=== PATIENT | male | born 1960 | race Caucasian/White ===

== ENCOUNTER → 2017-07-23 | Outpatient (CLI) | payer BC ==
[2017-07-23 08:49] LABS: Basophils % (A) 0 %; Eosinophils # (A) 0.2 k/uL (0-0.7); Eosinophils % (A) 3 %; HCT 46.5 % (39.0-53.0); HGB 15.5 gm/dL (13.0-17.5); Lymphocytes # (A) 1.9 k/uL (1.0-4.8); Lymphocytes % (A) 24 %; MCH 30.2 pg (25.0-35.0); MCHC 33.3 g/dL (31.0-37.0); MCV 90.6 fL (80.0-100.0); Mean Platelet Volume 7.5; Monocytes # (A) 0.6 k/uL (0-1.0); Monocytes % (A) 8 %; Neutrophils # (A) 5.1 k/uL (1.3-7.7); Neutrophils % (A) 63 %; Platelet Count 225 k/uL (150-450); RBC 5.13 m/uL (4.30-5.90); RDW 12.1 % (11.5-15.5); WBC 8.1 k/uL (3.8-10.6)
[2017-07-23 09:01] LABS: Albumin 4.2 g/dL (3.5-5.0); Calcium 9.4 mg/dL (8.4-10.2); Potassium 5.3 mmol/L (3.5-5.1); Total Bilirubin 0.5 mg/dL (0.2-1.3); Total Protein 7.3 g/dL (6.3-8.2)
[2017-07-23 16:44] LABS: Vitamin D 25 Hydroxy 19.6 ng/mL (30.0-100.0)
[2017-07-23 18:13] LABS: Hepatitis C IgG Antibody Non-Reactive (Non-Reactive)
== END | disposition home or self-care (01) ==
LOC: LABWHC1 08:14
PROVIDERS: ATTEND Internal Medicine
DX: H35.09 Other intraretinal microvascular abnormalities (principal); E55.9 Vitamin D deficiency, unspecified; Z13.6 Encounter for screening for cardiovascular disorders
CPT/HCPCS: 36415; 80053; 80061; 82306; 85025; 86803

== ENCOUNTER → 2017-11-09 | Outpatient (CLI) | payer BC ==
--- NOTE | 2017-11-09 11:46 | MR ---
EXAMINATION TYPE: MR lumbar spine wo con DATE OF EXAM: 11/09/2017 COMPARISON: NONE HISTORY: Sciatica TECHNIQUE: T1 and T2 axial and sagittal images of the lumbar spine are submitted. FINDINGS: There is no abnormal signal seen within the visualized spinal cord or paraspinal soft tissu es. Bilateral subcentimeter renal lesions likely related to cysts incidentally noted. Only portions o f the kidneys are included. At L1-2 there is a mild facet arthropathy. Neural foramina are patent. There is disc desiccation but no canal stenosis or disc herniation. At L2-3 there is very mild central disc bulging with minimal effacement of thecal sac but no central stenosis. Facet arthropathy is seen. Disc desiccation is seen neural foramina patent. Vertebral body hemangioma involving the anterior margin of L3. At L3-4 there is circumferential disc bulging with facet arthropathy. No Canal stenosis. Neural karyna jakob remain patent. At L4-5 there is advanced facet arthropathy with broad-based central disc bulging. There appears to b e lateral recess stenosis bilaterally and borderline to mild canal stenosis with moderate bilateral f oraminal encroachment. At L5-S1 there is severe degenerative disc disease with discogenic marrow changes. There is advanced facet arthropathy. Mild central disc bulging but no canal stenosis. There does appear to be moderate to severe bilateral foraminal encroachment. IMPRESSION: 1. Multilevel degenerative disc disease with severe changes L5-S1. Disc bulging and hypertrophic guajardo ges result in moderate to severe bilateral foraminal encroachment but no canal stenosis. 2. Disc bulging with advanced facet arthropathy L4-L5 resulting in borderline to mild central stenosi s and moderate bilateral foraminal encroachment. 3. A very mild central disc bulging L2-L3 with no canal stenosis.
== END | disposition home or self-care (01) ==
LOC: RADMRIMAIN 11:02
PROVIDERS: ATTEND Internal Medicine
DX: M48.061 Spinal stenosis, lumbar region without neurogenic claudication (principal); M51.26 Other intervertebral disc displacement, lumbar region; M51.37 Other intervertebral disc degeneration, lumbosacral region; M46.96 Unspecified inflammatory spondylopathy, lumbar region
CPT/HCPCS: 72148

== ENCOUNTER → 2018-12-17 | Outpatient (CLI) | payer BC | END | disposition home or self-care (01) | LOC: LABWHC1 10:10 | PROVIDERS: ATTEND Internal Medicine | DX: E29.1 Testicular hypofunction (principal) | CPT/HCPCS: 36415; 84402; 84403 ==

== ENCOUNTER → 2019-01-22 | Outpatient (CLI) | payer BC ==
--- NOTE | 2019-01-22 10:57 | MR ---
EXAMINATION TYPE: MR knee LT wo con DATE OF EXAM: 01/22/2019 COMPARISON: None HISTORY: L knee pain TECHNIQUE: Multiplanar, multisequence images of the knee is performed without IV contrast. FINDINGS: MEDIAL MENISCUS: Anterior and posterior horns are intact without tear. LATERAL MENISCUS: Anterior and posterior horns are intact without tear. CRUCIATE LIGAMENTS: The anterior and posterior cruciate ligaments are intact and unremarkable. COLLATERAL LIGAMENTS: The medial collateral ligament is intact. Lateral collateral ligament demonstra simon mild increased signal compatible with strain. EXTENSOR MECHANISM: Visualized quadriceps and patellar tendons are intact. EFFUSION: No significant suprapatellar joint effusion. POPLITEAL CYST: No popliteal/bryant cyst. TRICOMPARTMENT SPACES: No significant degenerative narrowing BONE MARROW SIGNAL: Moderate increased signal left lateral femoral condyle compatible with bone cont usion. Small focal subchondral fracture with cartilage remaining intact. OTHER: No additional significant abnormality is appreciated. IMPRESSION: 1. Moderate increased signal left lateral femoral condyle compatible with bone contusion. Small foca l subchondral fracture with cartilage remaining intact. 2. Strain of the lateral collateral ligament.
== END | disposition home or self-care (01) ==
LOC: RADMRIMAIN 07:17
PROVIDERS: ATTEND Orthopaedic Surgery
DX: S82.012A Displaced osteochondral fracture of left patella, initial encounter for closed fracture (principal); S86.812A Strain of other muscle(s) and tendon(s) at lower leg level, left leg, initial encounter

== ENCOUNTER → 2019-02-04 | Outpatient (CLI) | payer BC ==
[2019-02-04 12:24] LABS: Basophils # (A) 0.1 k/uL (0-0.2); Basophils % (A) 1 %; Eosinophils # (A) 0.3 k/uL (0-0.7); Eosinophils % (A) 4 %; HCT 44.5 % (39.0-53.0); HGB 15.3 gm/dL (13.0-17.5); Lymphocytes # (A) 1.9 k/uL (1.0-4.8); Lymphocytes % (A) 27 %; MCH 31.1 pg (25.0-35.0); MCHC 34.5 g/dL (31.0-37.0); MCV 90.1 fL (80.0-100.0); Mean Platelet Volume 7.9; Monocytes # (A) 0.5 k/uL (0-1.0); Monocytes % (A) 8 %; Neutrophils # (A) 4.2 k/uL (1.3-7.7); Neutrophils % (A) 59 %; Platelet Count 226 k/uL (150-450); RBC 4.94 m/uL (4.30-5.90); RDW 11.9 % (11.5-15.5); WBC 7.1 k/uL (3.8-10.6)
[2019-02-04 12:28] LABS: Potassium 4.5 mmol/L (3.5-5.1)
== END ==
LOC: LABPAT 11:17
PROVIDERS: ATTEND Orthopaedic Surgery
DX: Z01.818 Encounter for other preprocedural examination (principal); R94.31 Abnormal electrocardiogram [ECG] [EKG]; M23.92 Unspecified internal derangement of left knee
CPT/HCPCS: 36415; 80051; 85025; 93005

== ENCOUNTER 2019-02-13 11:39 | Day surgery (SDC) | payer BC ==
[2019-02-12 10:56] VITALS: BMI 30.8
--- NOTE | 2019-02-12 21:03 | HP ---
HISTORY AND PHYSICAL REASON FOR ADMISSION: Surgery scheduled for 02/13/2019. John Lares is a 58-year-old patient seen with progressive left knee pain. We discussed options for treatment. He elected to proceed with arthroscopy. Consent was obtained. PAST MEDICAL HISTORY: Noncontributory. SURGICAL HISTORY: Noncontributory. MEDICATIONS: Ativan. ALLERGIES: CODEINE. SOCIAL HISTORY: Denies tobacco use. PHYSICAL EXAMINATION: Evaluation of the left knee range of motion is -3 to 120. Mild effusion. Tenderness medial and lateral joint lines. Positive medial Duane's. Positive lateral Duane's. Ligaments stable. Hip rotation without pain. Distal neurovascular exam is intact. RADIOGRAPHS: Radiographs of the left knee revealed mild osteoarthritis. MRI left knee revealed bone contusion. IMPRESSION: Internal derangement, left knee with meniscal tear versus osteochondral tear. PLAN: Left knee arthroscopy with partial meniscectomy versus chondroplasty, partial synovectomy and debridement. Surgery 02/13/2019. MMODL / IJN: [id number] /
[2019-02-13] MEDS ORDERED: LIDOCAINE 1% 20 ML VIAL (10MG/ML) FOR IV START INTRADERMA ONE (12:25)
[2019-02-13] MEDS ORDERED: LACTATED RINGERS 1,000 ML IV ONE ×2 (12:25→14:05)
[2019-02-13] MEDS ORDERED: ONDANSETRON 4 MG/2 ML VIAL IVP ONE (12:35)
[2019-02-13] MEDS ORDERED: DEXAMETHASONE SOD PHOSPHATE 10 MG/ML 1 ML VIAL IV ONE (12:35)
[2019-02-13] MEDS ORDERED: DEXAMETHASONE SOD PHOS (MDV) 100 MG/10 ML VIAL ONE (13:13)
[2019-02-13] MEDS ORDERED: MIDAZOLAM 2 MG/2 ML VIAL ONE (13:13)
[2019-02-13] MEDS ORDERED: fentaNYL (PF) 50 MCG/ML 2 ML AMP ONE (13:13)
[2019-02-13] MEDS ORDERED: SUCCINYLCHOLINE CHLORIDE 100 MG/5 ML SYR IV ONE (13:13)
[2019-02-13] MEDS ORDERED: HYDROmorphone (PF) 1 MG/ML ONE (13:13)
[2019-02-13] MEDS ORDERED: KETOROLAC 30 MG/ML 1 ML VIAL ONE (13:13)
[2019-02-13] MEDS ORDERED: PROPOFOL 10 MG/ML 20 ML VIAL IV ONE (13:13)
[2019-02-13] MEDS ORDERED: LIDOCAINE 1% INJ 10MG/ML (20 ML MDV) ONE (13:13)
[2019-02-13] MEDS ORDERED: BUPIVACAIN-EPI 0.25%-1:200,000 30 ML VIAL INTRAARTIC ONE ×2 (13:45→13:59)
--- NOTE | 2019-02-13 14:16 | P.OP ---
Date of Procedure: 02/13/19 Preoperative Diagnosis: Internal derangement left knee Postoperative Diagnosis: 1. Tear medial meniscus left knee 2. Grade 2 chondromalacia medial femoral condyle left knee 3. Grade 2 chondromalacia femoral sulcus left knee 4. Medial plica left knee 5. Reactive synovitis medial, lateral and suprapatellar compartments left knee Procedure(s) Performed: 1. Arthroscopic partial medial meniscectomy left knee 2. Arthroscopic chondroplasty medial femoral condyle left knee 3. Arthroscopic chondroplasty femoral sulcus left knee 4. Arthroscopic resection medial plica left knee 5. Arthroscopic partial synovectomy medial, lateral and suprapatellar co mpartments left knee Anesthesia: GETA, local Surgeon: Buzz Chowdary Estimated Blood Loss (ml): 11 Pathology: none sent Condition: stable Disposition: PACU Indications for Procedure: 58-year-old patient seen with progressive left knee pain. After having treatment options discussed, he elected to proceed with arthroscopy. Operative Findings: See description of procedure Description of Procedure: Patient was taken to the operative suite. Patient underwent a general anesthetic by the department of anesthesia. Patient was given preoperative antibiotics. The left lower extremity was placed in a well-padded arthroscopic leg vera. The left leg was prepped and draped in the normal sterile orthopedic fashion. A lateral parapatellar and suprapatellar incision was made. Trochars were inserted. Arthroscopy was initiated. Suprapatellar pouch revealed diffuse thick reactive synovitis. The patellofemoral joint appeared to articulate congruently. There was grade 2 chondromalacia of the femoral sulcus. The scope was guided into the medial gutter. There was a medial plica which did impinge along the medial femoral condyle with range of motion. The scope was then guided into the medial compartment. A medial parapatellar incision was made. Trocar inserted followed by probe. There was a radial tear posterior horn medial meniscus. There were grade 2 chondromalacia changes of the medial femoral condyle with some osteochondral flap tears present. There was thick reactive synovitis anteriorly. I performed a partial medial meniscectomy. I performed a chondroplasty of the medial femoral condyle. I performed a partial synovectomy. The residual meniscus was stable. The residual osteochondral surface was stable. There was good decompression of the synovitis. Scope and probe were then guided into the intercondylar notch. Cruciates were identified, probed and found to be stable. The scope and probe were then guided into lateral compartment. Lateral meniscus was probed and found to be stable. There was thick reactive synovitis anteriorly. I introduced a motorized shaver and performed a partial synovectomy decompressing reactive synovitis. Shaver was removed. There was good decompression of the synovitis. The scope was in guided back into the suprapatellar compartment. I introduced a motorized shaver into the super patellar compartment. I debrided some piecemeal fragments of meniscus. I took encountered. I resected that medial plica. I performed a chondroplasty of the femoral sulcus. I performed a partial synovectomy. Shaver was removed. I took the knee through range of motion noted complete resection of the plica with no impingement noted. The residual osteochondral surface was stable. There was good decompression of the synovitis. Instruments were now removed from the joint. The joint was infiltrated with .25% Marcaine. Steri- Strips were applied to the portal sites. Sterile dressings were applied. The patient was placed into a NADINE hose. No tourniquet was utilized. The patient was awakened, transferred to a bed and taken to recovery stable satisfactory condition.
[2019-02-13] MEDS ORDERED: HYDROmorphone 0.5 MG/0.5 ML SYRINGE IVP ONE ×4 (14:22→15:20)
[2019-02-13 14:33] VITALS: TEMP 97
[2019-02-13 15:04] VITALS: RESP 16
[2019-02-13 16:29] VITALS: BP 134/85; PULSE 85
== END 2019-02-13 17:04 | disposition home or self-care (01) ==
LOC: OR 11:39
PROVIDERS: ATTEND Orthopaedic Surgery
DX: S83.242A Other tear of medial meniscus, current injury, left knee, initial encounter (principal); X58.XXXA Exposure to other specified factors, initial encounter; M94.262 Chondromalacia, left knee; M67.52 Plica syndrome, left knee; M65.862 Other synovitis and tenosynovitis, left lower leg; Z85.528 Personal history of other malignant neoplasm of kidney; Z90.5 Acquired absence of kidney; Z79.899 Other long term (current) drug therapy; Z88.5 Allergy status to narcotic agent
CPT/HCPCS: 29881; 29876; J2250; J1100 ×2; J2405; J2001; J3010; J1885; J1170 ×2; J0330; J2704

== ENCOUNTER → 2020-03-18 | Outpatient (CLI) | payer BC ==
--- NOTE | 2020-03-18 12:32 | US ---
EXAMINATION TYPE: US kidneys/renal and bladder DATE OF EXAM: 03/18/2020 COMPARISON: NONE CLINICAL HISTORY: N28.1 CYST OF KIDNEY. Left nephrectomy, right renal cyst on MRI EXAM MEASUREMENTS: Right Kidney: 11.9 x 5.4 x 6.1 cm Left Kidney: Surgically absent Right Kidney: 1.6cm mid pole cyst seen Left Kidney: Surgically absent Bladder: not fully distended IMPRESSION: 1. Right renal cyst. 2. No suspicious masses within the left renal bed
== END | disposition home or self-care (01) ==
LOC: RADUSWWP 10:59
PROVIDERS: ATTEND Internal Medicine
DX: N28.1 Cyst of kidney, acquired (principal)
CPT/HCPCS: 76770

== ENCOUNTER → 2020-07-20 | Outpatient (CLI) | payer BC ==
[2020-07-20 14:33] LABS: Basophils # (A) 0.05 X 10*3/uL (0.00-0.10); Basophils % (A) 0.9 %; Eosinophils # (A) 0.25 X 10*3/uL (0.04-0.35); Eosinophils % (A) 4.4 %; HCT 43.9 % (39.6-50.0); HGB 14.3 g/dL (13.0-17.0); Lymphocytes # (A) 1.85 X 10*3/uL (0.90-5.00); Lymphocytes % (A) 32.9 %; MCH 30.8 pg (27.0-32.0); MCHC 32.6 g/dL (32.0-37.0); MCV 94.4 fL (80.0-97.0); Mean Platelet Volume 11.4 fL (9.5-12.2); Monocytes % (A) 10.7 %; Neutrophils # (A) 2.86 X 10*3/uL (1.80-7.70); Neutrophils % (A) 50.9 %; Platelet Count 204 X 10*3/uL (140-440); RBC 4.65 X 10*6/uL (4.40-5.60); RDW 11.9 % (11.5-14.5); WBC 5.62 X 10*3/uL (4.50-10.00)
[2020-07-20 18:01] LABS: African American GFR (CKD) 68.7 (60.0-200.0); Albumin/Globulin Ratio 1.48 (1.60-3.17); Anion Gap 6.9 mmol/L (4.00-12.00); BUN/Creat Ratio 16.92 Ratio (12.00-20.00); Carbon Dioxide 25.1 mmol/L (21.6-31.8); Chol/HDL Ratio 4.53; Globulin 2.7 g/dL (1.6-3.3); LDL Cholesterol,Calculated 94.8 mg/dL (0.0-131.0); Non-African American GFR(CKD) 59.3 (60.0-200.0); Potassium 4.5 mmol/L (3.5-5.5); Total Bilirubin 0.3 mg/dL (0.3-1.2); Total Protein 6.7 g/dL (6.2-8.2); VLDL Calculation 32.2 mg/dL (5.00-40.00)
[2020-07-20 18:11] LABS: Prostate Specific Antigen 0.6 ng/mL (0.0-4.5)
== END | disposition home or self-care (01) ==
LOC: LABWHC1 10:22
PROVIDERS: ATTEND Family Medicine
DX: Z00.01 Encounter for general adult medical examination with abnormal findings (principal); F52.21 Male erectile disorder
CPT/HCPCS: 36415; 80053; 80061; 84153; 84403; 85025

== ENCOUNTER 2021-08-13 10:24 | Observation (INO) | payer BC ==
[2021-08-13] MEDS ORDERED: ASPIRIN 81 MG PO STA (10:26)
--- NOTE | 2021-08-13 10:31 | ED ---
General Adult HPI - General Chief complaint: Chest Pain Stated complaint: Chest pain Time Seen by Provider: 08/13/21 10:26 Source: patient, family, RN/MD (I did speak with practitioner Maria Elena prior to patient arrival), RN notes reviewed Mode of arrival: wheelchair Limitations: no limitations - History of Present Illness Initial comments: Patient is a pleasant [age]-year-old male presenting to the emergency department with concerns with chest discomfort. Symptoms have been occurring for several months, but worse recently. Symptoms do worsen at times with exertion. Discomfort feels like pressure. There is some radiation towards the right posterior shoulder. No associated dyspnea or nausea. Patient does get sweaty at times. No leg pain or leg swelling. Symptoms are near resolved at this time. Patient was recently started on propanolol for A. fib. No thinners. - Related Data Home Medications Medication Instructions Recorded Confirmed LORazepam [Ativan] 0.5 mg PO BID PRN 02/12/19 08/13/21 Gabapentin 600 mg PO BID 08/13/21 08/13/21 Metoprolol Tartrate [Lopressor] 12.5 mg PO BID 08/13/21 08/13/21 Allergies Allergy/AdvReac Type Severity Reaction Status Date / Time codeine Allergy Nausea & Verified 08/13/21 12:49 Vomiting Review of Systems ROS Statement: Those systems with pertinent positive or pertinent negative responses have been documented in the HPI. ROS Other: All systems not noted in ROS Statement are negative. Constitutional: Denies: fever Eyes: Denies: eye pain ENT: Denies: ear pain Respiratory: Denies: cough, dyspnea Cardiovascular: Reports: as per HPI, chest pain Endocrine: Denies: fatigue Gastrointestinal: Denies: abdominal pain, nausea Genitourinary: Denies: dysuria Musculoskeletal: Denies: arthralgia Skin: Denies: rash Neurological: Denies: weakness Past Medical History Past Medical History: Cancer Additional Past Medical History / Comment(s): Kidney cancer 02/06/18. History of Any Multi-Drug Resistant Organisms: None Reported Past Surgical History: Hernia Repair Additional Past Surgical History / Comment(s): Left kidney removed. Past Anesthesia/Blood Transfusion Reactions: No Reported Reaction Past Psychological History: Anxiety Smoking Status: Never smoker Past Alcohol Use History: Occasional Past Drug Use History: Marijuana - Past Family History Mother Family Medical History: Cancer Father Family Medical History: Cancer Sister(s) Family Medical History: Cancer General Exam Limitations: no limitations General appearance: alert, in no apparent distress Head exam: Present: normocephalic Eye exam: Present: normal appearance Neck exam: Present: normal inspection Respiratory exam: Present: normal lung sounds bilaterally. Absent: chest wall tenderness Cardiovascular Exam: Present: regular rate, normal rhythm Expanded Peripheral pulses: 2+: Radial (R), Radial (L), Posterior Tibialis (R), Posterior Tibialis (L) GI/Abdominal exam: Present: soft. Absent: tenderness Extremities exam: Present: normal inspection. Absent: pedal edema, calf tenderness Neurological exam: Present: alert Psychiatric exam: Present: normal affect, normal mood Skin exam: Present: normal color Course Vital Signs 08/13/21 08/13/21 08/13/21 10:25 11:40 12:07 Temperature 98.0 F 98.0 F Pulse Rate 65 65 75 Respiratory 18 18 18 Rate Blood Pressure 125/79 126/76 126/79 O2 Sat by Pulse 98 100 98 Oximetry EKG Findings - EKG Comments: EKG Findings:: Sinus rhythm 60. CO 181. QRS 109. QT 32. QTC 32. Right axis. Normal QRS. No acute ST change. Medical Decision Making - Medical Decision Making Patient reevaluated and resting comfortably in bed. Patient family updated on results and plan. Case was discussed with practitioner Vlad, who will admit covering for Dr. Kirkland. - Lab Data Result diagrams: 08/13/21 11:15 08/13/21 11:15 Lab Results 08/13/21 08/13/21 08/13/21 Range/Units 11:15 11:15 11:15 WBC 13.1 H (3.8-10.6) k/uL RBC 4.70 (4.30-5.90) m/uL Hgb 15.5 (13.0-17.5) gm/dL Hct 43.7 (39.0-53.0) % MCV 93.0 (80.0-100.0) fL MCH 32.9 (25.0-35.0) pg MCHC 35.4 (31.0-37.0) g/dL RDW 12.8 (11.5-15.5) % Plt Count 185 (150-450) k/uL MPV 8.3 Neutrophils % 66 % Lymphocytes % 20 % Monocytes % 8 % Eosinophils % 2 % Basophils % 0 % Neutrophils # 8.6 H (1.3-7.7) k/uL Lymphocytes # 2.7 (1.0-4.8) k/uL Monocytes # 1.1 H (0-1.0) k/uL Eosinophils # 0.3 (0-0.7) k/uL Basophils # 0.1 (0-0.2) k/uL PT 10.0 (9.0-12.0) sec INR 0.9 (<1.2) APTT 24.2 (22.0-30.0) sec D-Dimer 0.84 H (<0.60) mg/L FEU Sodium 138 (137-145) mmol/L Potassium 4.4 (3.5-5.1) mmol/L Chloride 107 (98-107) mmol/L Carbon Dioxide 23 (22-30) mmol/L Anion Gap 8 mmol/L BUN 16 (9-20) mg/dL Creatinine 1.23 (0.66-1.25) mg/dL Est GFR (CKD-EPI)AfAm 73 (>60 ml/min/1.73 sqM) Est GFR (CKD-EPI)NonAf 63 (>60 ml/min/1.73 sqM) Glucose 92 (74-99) mg/dL Calcium 9.4 (8.4-10.2) mg/dL Magnesium 2.1 (1.6-2.3) mg/dL Total Bilirubin 0.7 (0.2-1.3) mg/dL AST 24 (17-59) U/L ALT 24 (4-49) U/L Alkaline Phosphatase 79 (38-126) U/L Troponin I (0.000-0.034) ng/mL Total Protein 7.3 (6.3-8.2) g/dL Albumin 4.2 (3.5-5.0) g/dL 08/13/21 Range/Units 11:15 WBC (3.8-10.6) k/uL RBC (4.30-5.90) m/uL Hgb (13.0-17.5) gm/dL Hct (39.0-53.0) % MCV (80.0-100.0) fL MCH (25.0-35.0) pg MCHC (31.0-37.0) g/dL RDW (11.5-15.5) % Plt Count (150-450) k/uL MPV Neutrophils % % Lymphocytes % % Monocytes % % Eosinophils % % Basophils % % Neutrophils # (1.3-7.7) k/uL Lymphocytes # (1.0-4.8) k/uL Monocytes # (0-1.0) k/uL Eosinophils # (0-0.7) k/uL Basophils # (0-0.2) k/uL PT (9.0-12.0) sec INR (<1.2) APTT (22.0-30.0) sec D-Dimer (<0.60) mg/L FEU Sodium (137-145) mmol/L Potassium (3.5-5.1) mmol/L Chloride (98-107) mmol/L Carbon Dioxide (22-30) mmol/L Anion Gap mmol/L BUN (9-20) mg/dL Creatinine (0.66-1.25) mg/dL Est GFR (CKD-EPI)AfAm (>60 ml/min/1.73 sqM) Est GFR (CKD-EPI)NonAf (>60 ml/min/1.73 sqM) Glucose (74-99) mg/dL Calcium (8.4-10.2) mg/dL Magnesium (1.6-2.3) mg/dL Total Bilirubin (0.2-1.3) mg/dL AST (17-59) U/L ALT (4-49) U/L Alkaline Phosphatase (38-126) U/L Troponin I <0.012 (0.000-0.034) ng/mL Total Protein (6.3-8.2) g/dL Albumin (3.5-5.0) g/dL - Radiology Data Radiology results: report reviewed (Computed tomography scan negative for pulmonary embolism), image reviewed (Chest x-ray shows no acute process.) Disposition Clinical Impression: Chest pain Disposition: ADMITTED IP TO THIS [facility] Is patient prescribed a controlled substance at d/c from ED?: No Referrals: None,Stated [Primary Care Provider] - 1-2 days Time of Disposition: 13:55
[2021-08-13] MEDS ORDERED: NITROGLYCERIN OINT 1 INCH/GM PACKET TOPICAL STA (10:35)
--- NOTE | 2021-08-13 10:53 | XR ---
EXAMINATION TYPE: XR chest 2V DATE OF EXAM: 08/13/2021 COMPARISON: NONE HISTORY: Chest pain. History of atrial fibrillation. TECHNIQUE: Frontal and lateral views of the chest are obtained. FINDINGS: Exam is suboptimal as does not include entire lower lungs. There is no suspicious focal ai r space opacity, pleural effusion, or pneumothorax seen. The cardiac silhouette size is within caroline l limits. The osseous structures are intact. IMPRESSION: No acute process.
[2021-08-13 11:31] LABS: Basophils # (A) 0.1 k/uL (0-0.2); Basophils % (A) 0 %; Eosinophils # (A) 0.3 k/uL (0-0.7); Eosinophils % (A) 2 %; HCT 43.7 % (39.0-53.0); HGB 15.5 gm/dL (13.0-17.5); Lymphocytes # (A) 2.7 k/uL (1.0-4.8); Lymphocytes % (A) 20 %; MCH 32.9 pg (25.0-35.0); MCHC 35.4 g/dL (31.0-37.0); Mean Platelet Volume 8.3; Monocytes # (A) 1.1 k/uL (0-1.0); Monocytes % (A) 8 %; Neutrophils # (A) 8.6 k/uL (1.3-7.7); Neutrophils % (A) 66 %; Platelet Count 185 k/uL (150-450); RDW 12.8 % (11.5-15.5); WBC 13.1 k/uL (3.8-10.6)
[2021-08-13 11:47] LABS: INR 0.9 (<1.2); Partial Thromboplastin Time 24.2 sec (22.0-30.0)
[2021-08-13 11:48] LABS: Albumin 4.2 g/dL (3.5-5.0); Calcium 9.4 mg/dL (8.4-10.2); Magnesium 2.1 mg/dL (1.6-2.3); Potassium 4.4 mmol/L (3.5-5.1); Total Bilirubin 0.7 mg/dL (0.2-1.3); Total Protein 7.3 g/dL (6.3-8.2)
[2021-08-13] MEDS ORDERED: HYDROcodone/APAP 5-325MG 1 EACH TAB PO PRN (13:03)
[2021-08-13] MEDS ORDERED: MELATONIN 3 MG TABLET PO PRN (13:03)
[2021-08-13] MEDS ORDERED: NALOXONE 0.4 MG/ML 1 ML VIAL IVP PRN (13:03)
[2021-08-13] MEDS ORDERED: ONDANSETRON 4 MG/2 ML VIAL IVP PRN (13:03)
--- NOTE | 2021-08-13 13:23 | CT ---
EXAMINATION TYPE: CT angio chest DATE OF EXAM: 08/13/2021 COMPARISON: Chest x-ray earlier today HISTORY: Chest pain CT DLP: 623.6 mGycm. Automated Exposure Control for Dose Reduction was Utilized. CONTRAST: CTA scan of the thorax is performed with IV Contrast, patient injected with 70 mL of Isovue 300, . MIP Images are created on CT scanner and reviewed. 3D reconstructed images are created on an [employer] ent workstation and reviewed. FINDINGS: LUNGS: Motion artifact degrades evaluation of the diaphragm particularly for subcentimeter nodules. Lungs grossly clear without focal consolidation. There is no pleural effusion or pneumothorax seen. The tracheobronchial tree is patent. MEDIASTINUM: There is satisfactory enhancement of the pulmonary artery and its branches, there is no CT evidence for pulmonary embolism. Enhancement of the thoracic aorta without aneurysm or dissection. There are prominent right hilar lymph nodes axial image 74 for reference which is nonspecific. Promi nent but subcentimeter subcarinal lymph nodes axial image 86. Tiny pericardial effusion is seen. No c ardiomegaly. Coronary artery calcification is present which is noted marker for underlying coronary a rtery disease. OTHER: No additional significant abnormality is seen. IMPRESSION: No CT evidence for acute pulmonary embolism. No suspicious acute pulmonary process.
[2021-08-13] MEDS ORDERED: NITROGLYCERIN SL TABS 0.4 MG TAB SUBLINGUAL PRN (13:56)
[2021-08-13] MEDS ORDERED: LORazepam 0.5 MG TAB PO PRN (14:43)
--- NOTE | 2021-08-13 18:51 | P.HPIM ---
History of Present Illness H&P Date: 08/13/21 History of Presenting Illness: Patient is a very pleasant 61-year-old male with a past medical history of hypertension, atrial fibrillation not on anticoagulation and renal carcinoma in 2019 status post left nephrectomy. He presented to the emergency department with the chief complaint of chest discomfort. Patient reports he has noticed intermittent chest pain/discomfort over the past few months since his diagnosis with Covid. Patient reports his pain comes on typically with exertion and improves at rest. He states this pain is associated with exercise intolerance, shortness of breath, and diaphoresis. Patient describes this pain as a pressure-like sensation. Patient reports he came to the emergency department today because the symptoms have progressively worsened and today came on at rest and felt much heavier than normal. Patient reports that in addition to this he was recently diagnosed with atrial fibrillation and started on metoprolol but was not started on blood thinners at that time. Patient denies currently having any headache, lightheadedness, dizziness, fevers, chills, palpitations, shortness of breath at rest, abdominal pain, nausea, vomiting, or experiencing any numbness/tingling/weakness/swelling in his extremities. Patient underwent full evaluation in the emergency department. EKG was completed revealing normal sinus rhythm at 60 bpm with no noted T-wave or ST abnormalities showing no signs of acute ischemia. Troponin negative at less than 0.012. D-dimer was positive at 0.84 and patient underwent a CTA of chest that was negative for acute pulmonary embolism rest x-ray completed negative for acute cardiopulmonary process.. CBC revealed mild leukocytosis with WBC count of 13.1 and CMP was unremarkable. Patient has been admitted under our services for observation with consultation to cardiology to rule out acute coronary syndrome. Review of systems: Pertinent positives and negatives as discussed in HPI, a complete review of systems was performed and all other systems are negative. Physical exam: Vital signs reviewed and stable. General: Nontoxic, no distress and appears stated age. Derm: Skin warm and dry, normal coloration for ethnicity. Head: Atraumatic, normocephalic and symmetric. Eyes: EOMs intact, no lid lag, and anicteric sclera Mouth: no lip lesions, mucus membranes moist Cardiovascular: regular rate and rhythm with normal S1S2, no murmur, positive posterior tibial pulses bilaterally, and cap refill < 2 seconds. Lungs: Respirations even, regular, and unlabored on room air. Lungs CTA bilate rally, no rhonchi, no rales, no wheezing, and no accessory muscle usage. Abdominal: soft, nontender to palpation, no guarding, no appreciable organomegaly Ext: ROM intact. No gross muscle atrophy, no edema, no contractures Neuro: Speech clear, face symmetrical and CN II-XII grossly intact with no noted focal neuro deficits Psych: Alert and oriented to person, place, time, and situation. Appropriate and pleasant affect. Assessment and Plan of Care: Chest pain, rule out acute coronary event -Cardiology consult, appreciate further recommendations -Telemetry monitoring -Trend troponins -Cardiac diet, NPO at midnight -Aspirin, atorvastatin, and metoprolol -Lipid profile with a.m. labs. -Echocardiogram Hypertension Monitor vital signs and continue daily medication regimen with metoprolol. The patient is admitted with an anticipated less than 2 midnight stay for evaluation of chest pain. CODE STATUS: Full code DVT prophylaxis: Heparin Discussed with: Patient, patient's , and RN Anticipated discharge date: 1-[address]: Home A total of 47 minutes was spent on the care of this complex patient more than 50% of the time was spent in counseling and care coordination. Past Medical History Past Medical History: Cancer Additional Past Medical History / Comment(s): Kidney cancer 02/06/18. History of Any Multi-Drug Resistant Organisms: None Reported Past Surgical History: Hernia Repair Additional Past Surgical History / Comment(s): Left kidney removed. Past Anesthesia/Blood Transfusion Reactions: No Reported Reaction Past Psychological History: Anxiety Smoking Status: Never smoker Past Alcohol Use History: Occasional Past Drug Use History: Marijuana - Past Family History Mother Family Medical History: Cancer Father Family Medical History: Cancer Sister(s) Family Medical History: Cancer Medications and Allergies Home Medications Medication Instructions Recorded Confirmed Type LORazepam [Ativan] 0.5 mg PO BID PRN 02/12/19 08/13/21 History Gabapentin 600 mg PO BID 08/13/21 08/13/21 History Metoprolol Tartrate [Lopressor] 12.5 mg PO BID 08/13/21 08/13/21 History Allergies Allergy/AdvReac Type Severity Reaction Status Date / Time codeine Allergy Nausea & Verified 08/13/21 12:49 Vomiting Physical Exam Vitals: Vital Signs Temp Pulse Resp BP Pulse Ox 08/13/21 12:07 75 18 126/79 98 08/13/21 11:40 98.0 F 65 18 126/76 100 08/13/21 10:25 98.0 F 65 18 125/79 98 Intake and Output 08/12/21 08/13/21 08/13/21 22:59 06:59 14:59 Other: Weight 117.934 kg Results CBC & Chem 7: 08/13/21 11:15 08/13/21 11:15 Labs: Abnormal Lab Results - Last 24 Hours (Table) 08/13/21 08/13/21 Range/Units 11:15 11:15 WBC 13.1 H (3.8-10.6) k/uL Neutrophils # 8.6 H (1.3-7.7) k/uL Monocytes # 1.1 H (0-1.0) k/uL D-Dimer 0.84 H (<0.60) mg/L FEU
[2021-08-13 19:23] VITALS: RESP 18
[2021-08-13] MEDS: METOPROLOL TARTRATE 12.5 MG TAB PO SCH (20:56)
[2021-08-13] MEDS: GABAPENTIN 300 MG CAP PO SCH (20:56)
[2021-08-13] MEDS ORDERED: BENZOCAINE/MENTHOL LOZENG 1 EACH LOZENGE MUCOUS MEM PRN (21:06)
[2021-08-14] MEDS: HEPARIN SODIUM,PORCINE/PF 5,000 UNIT/0.5 ML SYRINGE SQ SCH ×2 (00:19→10:21)
[2021-08-14] MEDS ORDERED: PANTOPRAZOLE 40 MG TABLET PO SCH (07:30)
[2021-08-14] MEDS ORDERED: ASPIRIN 81 MG PO SCH (09:00)
[2021-08-14] MEDS ORDERED: ATORVASTATIN 80 MG TAB PO SCH (09:00)
[2021-08-14] MEDS: GABAPENTIN 300 MG CAP PO SCH (10:21)
[2021-08-14] MEDS: METOPROLOL TARTRATE 12.5 MG TAB PO SCH (10:21)
[2021-08-14 10:27] LABS: Chol/HDL Ratio 4.08 Ratio; LDL Cholesterol,Calculated 98.4 mg/dL (0.0-131.0)
--- NOTE | 2021-08-14 13:32 | P.CRDCN ---
History of Present Illness History of present illness: HISTORY OF PRESENTING ILLNESS Patient is a pleasant 61-year-old male with history of paroxysmal atrial fibrillation recently diagnosed in October 2020, history of renal carcinoma status post right nephrectomy 2018, who presents secondary to feeling of chest pressure sensation. He states it feels similar to when he was diagnosed with atrial fibrillation back in October. He has not had any further episodes since that time and has really only had 2 episodes. He was at work and it l asted for a few hours and he finished work and then presented to clinic the next day and then was told to go to the ER. He has not had any recurrence. EKG showed normal sinus rhythm without significant ST or T wave abnormalities. CTA showed no PE. He previously followed with Dr. Bey. Troponins negative 3. REVIEW OF SYSTEMS At the time of my exam: CONSTITUTIONAL: Denies fever or chills. CARDIOVASCULAR: +Chest pain, no shortness of breath, orthopnea, PND or palpitations. RESPIRATORY: Denies cough. GASTROINTESTINAL: Denies abdominal pain, diarrhea, constipation, nausea or vomiting. MUSCULOSKELETAL: Denies myalgias. NEUROLOGIC: Denies numbness, tingling or weakness. ENDOCRINE: Denies fatigue, weight change, polydipsia or polyurina. GENITOURINARY: Denies burning, hematuria or urgency with micturation. HEMATOLOGIC: Denies history of anemia or bleeding. PHYSICAL EXAMINATION Vital signs reviewed. CONSTITUTIONAL: No apparent distress. HEENT: Head is normocephalic. Pupils are equal, round. Sclerae anicteric. Mucous membranes of the mouth are moist. No JVD. No carotid bruit. CHEST EXAMINATION: Lungs are clear to auscultation. No chest wall tenderness is noted on palpation or with deep breathing. HEART EXAMINATION: Regular rate and rhythm. S1, S2 heard. No murmurs, gallops or rub. ABDOMEN: Soft, nontender. Positive bowel sounds. EXTREMITIES: 2+ peripheral pulses, no lower extremity edema and no calf tenderness. NEUROLOGIC EXAMINATION: Patient is awake, alert and oriented x3. ASSESSMENT 1. Episode of chest pain likely related to A. fib resolved by time reached the ER. Troponins negative 3. Do not suspect acute coronary syndrome 2. Paroxysmal atrial fibrillation currently sinus rhythm 3. No documentation of hypertension, patient only on low-dose metoprolol for A. fib 4. History of renal cell cancer status post nephrectomy PLAN Patient having an episode of chest pain which feels similar to his prior A. fib. He is back in sinus rhythm and CT PE protocol showing no significant PE and troponins have been normal. Patient may be discharged home with further discussion regarding A. fib management in office. May consider antiarrhythmics. No anticoagulation given CHADVASC of 0, no hypertension with patient only on Metoprolol for Afib. Discharge home with outpatient follow-up in 1 week. Past Medical History Past Medical History: Cancer Additional Past Medical History / Comment(s): Kidney cancer 02/06/18. History of Any Multi-Drug Resistant Organisms: None Reported Past Surgical History: Hernia Repair Additional Past Surgical History / Comment(s): Left kidney removed. Past Anesthesia/Blood Transfusion Reactions: No Reported Reaction Past Psychological History: Anxiety Smoking Status: Never smoker Past Alcohol Use History: Occasional Past Drug Use History: Marijuana - Past Family History Mother Family Medical History: Cancer Father Family Medical History: Cancer Sister(s) Family Medical History: Cancer Medications and Allergies Home Medications Medication Instructions Recorded Confirmed Type LORazepam [Ativan] 0.5 mg PO BID PRN 02/12/19 08/13/21 History Gabapentin 600 mg PO BID 08/13/21 08/13/21 History Metoprolol Tartrate [Lopressor] 12.5 mg PO BID 08/13/21 08/13/21 History Allergies Allergy/AdvReac Type Severity Reaction Status Date / Time codeine Allergy Nausea & Verified 08/13/21 12:49 Vomiting Physical Exam Vitals: Vital Signs Temp Pulse Pulse Resp BP BP Pulse Ox 08/14/21 07:00 98.2 F 74 18 147/85 96 08/14/21 02:27 98.2 F 78 18 143/82 95 08/14/21 01:25 73 18 08/13/21 19:22 98.1 F 73 18 128/81 98 08/13/21 16:19 97.9 F 100 16 121/80 93 L 08/13/21 15:45 63 18 119/78 98 Intake and Output 08/13/21 08/14/21 08/14/21 22:59 06:59 14:59 Other: # Voids 1 2 Results 08/13/21 11:15 08/13/21 11:15 Cardiac Enzymes 08/13/21 08/13/21 Range/Units 14:34 19:09 Troponin I <0.012 <0.012 (0.000-0.034) ng/mL Lipids 08/14/21 Range/Units 04:30 Triglycerides 131.00 (0.00-149.00) mg/dL Cholesterol 165.00 (0.00-200.00) mg/dL HDL Cholesterol 40.40 (40.00-60.00) mg/dL Cholesterol/HDL Ratio 4.08 Ratio Current Medications Generic Name Dose Route Start Last Admin Trade Name Freq PRN Reason Stop Dose Admin Hydrocodone Bitart/Acetaminophen 1 each 08/13/21 13:03 Hydrocodone/Apap 5-325mg 1 Each Tab PO Q4HR PRN Moderate Pain Aspirin 81 mg 08/14/21 09:00 08/14/21 10:21 Aspirin 81 Mg PO 81 mg DAILY GANESH Administration Atorvastatin Calcium 80 mg 08/14/21 09:00 08/14/21 10:21 Atorvastatin 80 Mg Tab PO 80 mg DAILY GANESH Administration Benzocaine/Menthol 1 each 08/13/21 21:06 08/13/21 22:32 Benzocaine/Menthol Lozeng 1 Each Lozenge MUCOUS MEM 1 each Q4HR PRN Administration Sore Throat Gabapentin 600 mg 08/13/21 21:00 08/14/21 10:21 Gabapentin 300 Mg Cap PO 600 mg BID GANESH Administration Heparin Sodium (Porcine) 5,000 unit 08/14/21 00:00 08/14/21 10:21 Heparin Sodium,Porcine/Pf 5,000 Unit/0.5 Ml Syringe SQ 5,000 unit Q8HR GANESH Administration Lorazepam 0.5 mg 08/13/21 14:43 Lorazepam 0.5 Mg Tab PO BID PRN Anxiety Melatonin 3 mg 08/13/21 13:03 Melatonin 3 Mg Tablet PO HS PRN Insomnia Metoprolol Tartrate 12.5 mg 08/13/21 21:00 08/14/21 10:21 Metoprolol Tartrate 12.5 Mg Tab PO 12.5 mg BID GANESH Administration Naloxone HCl 0.2 mg 08/13/21 13:03 Naloxone 0.4 Mg/Ml 1 Ml Vial IVP Q2M PRN Opioid Reversal Nitroglycerin 0.4 mg 08/13/21 13:56 Nitroglycerin Sl Tabs 0.4 Mg Tab SUBLINGUAL Q5M PRN Chest Pain Ondansetron HCl 4 mg 08/13/21 13:03 Ondansetron 4 Mg/2 Ml Vial IVP Q8HR PRN Nausea And Vomiting Pantoprazole Sodium 40 mg 08/14/21 07:30 08/14/21 10:21 Pantoprazole 40 Mg Tablet PO 40 mg [id number]-[id number] GANESH Administration Sodium Chloride 10 ml 08/13/21 21:00 08/14/21 10:21 Sodium Chloride 0.9% Flush 10 Ml Syringe IV 10 ml BID GANESH Administration Intake and Output 08/13/21 08/14/21 08/14/21 22:59 06:59 14:59 Other: # Voids 1 2 08/13/21 11:15 08/13/21 11:15
[2021-08-14 14:07] VITALS: BP 119/77; PULSE 79; TEMP 98.1
--- NOTE | 2021-08-14 14:50 | P.DS ---
Providers Date of admission: 08/13/21 13:57 Expected date of discharge: 08/14/21 Attending physician: Elke Phillip DO Consults: 08/13/21 13:03 Consult Physician Routine Consulting Provider: [facility] Consult Reason/Comments: Chest Pain Do you want consulting provider notified?: Yes Primary care physician: Stated None Hospital Course: Discharge Diagnosis: Chest pain, acute coronary event ruled out Hypertension, Monitor vital signs and continue daily medication regimen with metoprolol. Recent diagnosis of atrial fibrillation, Useln0Uofy score 1. No anticoagulation. Continue daily medication regimen with metoprolol. History of renal carcinoma, Status post right nephrectomy in 2019. Hospital Course: Patient is a very pleasant 61-year-old male with a past medical history reported by patient and his of hypertension, atrial fibrillation not on anticoagulation and renal carcinoma in 2019 status post left nephrectomy. He presented to the emergency department with the chief complaint of chest discomfort. Patient reports he has noticed intermittent chest pain/discomfort over the past few months since his diagnosis with Covid. Patient reports his pain comes on typically with exertion and improves at rest. He states this pain is associated with exercise intolerance, shortness of breath, and diaphoresis. Patient describes this pain as a pressure-like sensation. Patient reports he came to the emergency department today because the symptoms have progressively worsened and today came on at rest and felt much heavier than normal. Patient reports that in addition to this he was recently diagnosed with atrial fibrillation and started on metoprolol but was not started on blood thinners at that time. Patient denies currently having any headache, lightheadedness, dizziness, fevers, chills, palpitations, shortness of breath at rest, abdominal pain, nausea, vomiting, or experiencing any numbness/tingling/weakness/swelling in his extremities. Patient underwent full evaluation in the emergency department. EKG was completed revealing normal sinus rhythm at 60 bpm with no noted T-wave or ST abnormalities showing no signs of acute ischemia. Troponin negative at less than 0.012. D-dimer was positive at 0.84 and patient underwent a CTA of chest that was negative for acute pulmonary embolism and chest x-ray negative for acute cardiopulmonary process.. CBC revealed mild leukocytosis with WBC count of 13.1 and CMP was unremarkable. Patient was admitted under our services for observation with consultation to cardiology to rule out acute coronary syndrome. Patient was monitored overnight and had no further episodes of chest pain/discomfort. Troponins trended all negative at less than 0.0123 draws. Lipid profile was unremarkable. Patient was evaluated by cardiology ruling out an acute coronary event stating chest pain likely secondary to episode of atrial fibrillation as patient reports episode of chest pain resembled previous episodes of A. fib. No medication changes made at this time. Cardiology recommending patient may follow up in office as scheduled with Dr. Bucio in 1 week for further discussion/workup regarding atrial fibrillation including outpatient echocardiogram. Patient is medically stable for discharge at this time. Physical exam: Vital signs reviewed and stable. General: Nontoxic, no distress and appears stated age. Derm: Skin warm and dry, normal coloration for ethnicity. Head: Atraumatic, normocephalic and symmetric. Eyes: EOMs intact, no lid lag, and anicteric sclera Mouth: no lip lesions, mucus membranes moist Cardiovascular: regular rate and rhythm with normal S1S2, no murmur, positive posterior tibial pulses bilaterally, and cap refill < 2 seconds. Lungs: Respirations even, regular, and unlabored on room air. Lungs CTA bilaterally, no rhonchi, no rales, no wheezing, and no accessory muscle usage. Abdominal: soft, nontender to palpation, no guarding, no appreciable organomegaly Ext: ROM intact. No gross muscle atrophy, no edema, no contractures Neuro: Speech clear, face symmetrical and CN II-XII grossly intact with no noted focal neuro deficits Psych: Alert and oriented to person, place, time, and situation. Appropriate and pleasant affect. A total of 36 minutes of time were spent preparing this complex discharge summary. Pt was discharged on 08/14/21 at 2:38 PM. Patient Condition at Discharge: Stable Plan - Discharge Summary New Discharge Prescriptions: Continue LORazepam [Ativan] 0.5 mg PO BID PRN PRN Reason: Anxiety Metoprolol Tartrate [Lopressor] 12.5 mg PO BID Gabapentin 600 mg PO BID Discharge Medication List LORazepam [Ativan] 0.5 mg PO BID PRN 02/12/19 [History] Gabapentin 600 mg PO BID 08/13/21 [History] Metoprolol Tartrate [Lopressor] 12.5 mg PO BID 08/13/21 [History] Follow up Appointment(s)/Referral(s): Pierre Bucio MD [Family Provider] - 1 Week Ras Ramirez [STAFF PHYSICIAN] - 1-2 Days (Please make an appointment and establish care with a primary care provider. ) Patient Instructions/Handouts: A-fib (Atrial Fibrillation) (GEN), Chest Pain (DC), Heart Healthy Diet (DC) Activity/Diet/Wound Care/Special Instructions: Activity: As tolerated. Take breaks as needed. Diet: Heart healthy and carb consistent diet. Avoid salts, or foods with hidden salts such as canned or boxed foods and frozen dinners. Extra salt makes your heart work harder and traps the fluid in your body for longer. Special Instructions: Take all of your medications as directed and remember to keep all of your doctor's appointments and follow-up as needed. Thank you for allowing us to participate in your care, it was truly a pleasure having you for our patient!!! Discharge Disposition: HOME SELF-CARE
== END 2021-08-14 15:02 | disposition home or self-care (01) ==
LOC: EC 10:24 → 6NMEDSUR 13:57
PROVIDERS: ADMIT Internal Medicine; ATTEND Internal Medicine
DX: R07.89 Other chest pain (principal); I48.0 Paroxysmal atrial fibrillation; I10 Essential (primary) hypertension; F41.9 Anxiety disorder, unspecified; Z79.899 Other long term (current) drug therapy; Z88.5 Allergy status to narcotic agent; Z86.16 Personal history of COVID-19; Z85.528 Personal history of other malignant neoplasm of kidney; Z90.5 Acquired absence of kidney; Z98.890 Other specified postprocedural states; Z80.9 Family history of malignant neoplasm, unspecified
CPT/HCPCS: 96372; 99285; 36415; 93005; 85379; 80061; 80053; 83735; 84484; 85025; 85610; 85730; 71046; 71275; G0378 ×2; Q9967; J1644

== ENCOUNTER → 2022-06-20 | Outpatient (CLI) | payer BC ==
--- NOTE | 2022-06-21 21:02 | MR ---
EXAMINATION TYPE: MR lumbar spine wo con DATE OF EXAM: 06/20/2022 COMPARISON: 11/09/2017 HISTORY: 62-year-old male Low back pain TECHNIQUE: Multiplanar, multisequence images of the lumbar spine were acquired without IV contrast. FINDINGS: Vertebral body heights are preserved and alignment is maintained. Scattered fatty Modic type II endplate changes present throughout. Some edematous Modic type I endpla te changes at L4-L5 noted. Mild multilevel degenerative disc disease with desiccated and bulging discs. Moderate disc space narr owing at L5-S1. Posterior annular fissures at both L4-L5 and L5-S1 also redemonstrated. Some ligamentum flavum thickening mid to lower lumbar spine with hypertrophic facet arthropathy. 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 Conus medullaris is normal. No suspicious bone marrow replacement. No prevertebral or paravertebral soft tissue abnormality seen. Degenerative change at the bilateral SI joints. No focal disc herniation or significant spinal canal stenosis has developed. On the right, changes result in moderate to severe neuroforaminal stenosis at L5-S1 and moderate at L 4-L5. On the left, changes result in moderate to severe neuroforaminal stenosis at L4-L5 with impingement o f the exiting left L4 nerve root. Bulging disc here contains an annular fissure. Moderate neuroforami nal stenosis at L5-S1 also with possible impingement of the exiting left L5 nerve root. IMPRESSION: 1. Mild multilevel degenerative disc disease redemonstrated. Moderate at L5-S1. Posterior annular fis sures at both L4-L5 and L5-S1. 2. Hypertrophic facet arthropathy and ligamentum flavum thickening in the mid to lower lumbar spine. No vertebral compression collapse or malalignment. No large focal disc herniation or spinal canal wes nosis. 3. However, on the left, bulging disc at L4-L5 contains an annular fissure and contributes to moderat e to severe neuroforaminal stenosis at L4-L5 with suspected impingement of the exiting left L4 nerve root. At L5-S1, there is moderate neural foraminal stenosis with possible impingement of the exiting left L5 nerve root. 4. On the right, there is moderate to severe neuroforaminal stenosis L5-S1.
== END | disposition home or self-care (01) ==
LOC: RADMRIMAIN 10:36
PROVIDERS: ATTEND Family Medicine
DX: M51.16 Intervertebral disc disorders with radiculopathy, lumbar region (principal); M47.26 Other spondylosis with radiculopathy, lumbar region; M99.73 Connective tissue and disc stenosis of intervertebral foramina of lumbar region
CPT/HCPCS: 72148

== ENCOUNTER → 2023-03-12 | Outpatient (CLI) | payer BC ==
--- NOTE | 2023-03-12 13:19 | US ---
EXAMINATION TYPE: US scrotum with doppler. Grayscale and color Doppler Duplex imaging performed of kiko kebede scrotum. DATE OF EXAM: 03/12/2023 COMPARISON: NONE CLINICAL INDICATION: Male, 62 years old with history of N50.89 DISORDERS OF THE MALE GENITAL ORGANS; left scrotal swelling x a few months, now is more painful EXAM MEASUREMENTS: TESTICLES: Right Testicle: 4.7 x 3.2 x 3.2 cm Left Testicle: 4.7 x 3.2 x 3.2 cm EPIDIDYMIS HEAD: Right Epididymis: 1.5 cm Left Epididymis: 0.8 cm Doppler performed to assess for testicular vascularity; good bilateral color flow and waveforms are s een. There is no evidence of testicular torsion. Presence of hydroceles: Large left hydrocele: 8.0 x 4.0 x 4.4cm Presence of varicoceles: bilateral Left appendix epidiymis: 0.3 x 0.7 x 0.4cm Right hyperechoic intratesticular area noted mid/lateral: 0.4 x 0.3 x 0.3cm exam limited due to scrotal wall swelling, imaging of the left epididymal body/tail limited due to hy drocele IMPRESSION: 1. Left varicocele. 2. Large left hydrocele. 3. Appropriate arterial and venous spectral waveforms to the testes. 4. 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
== END | disposition home or self-care (01) ==
LOC: RADUSWWP 11:31
PROVIDERS: ATTEND Family Medicine
DX: N43.3 Hydrocele, unspecified (principal); I86.1 Scrotal varices; N50.89 Other specified disorders of the male genital organs
CPT/HCPCS: 76870; 93975

== ENCOUNTER → 2023-05-21 | Outpatient (CLI) | payer BC ==
--- NOTE | 2023-05-22 11:21 | CT ---
EXAMINATION TYPE: CT lumbar spine wo con DATE OF EXAM: 05/21/2023 COMPARISON: None HISTORY: injury to lower back fell down stairs CT DLP: 2108.3 mGycm CONTRAST: None TECHNIQUE: CT of the lumbar spine is performed on a spiral scan at 3 mm thick sections. Reconstructed images are performed in the coronal and sagittal planes. FINDINGS: T12-L1: No focal disc herniation or significant disc bulge is evident. No spinal canal stenosis or neural foraminal stenosis is present. L1-L2: No focal disc herniation or significant disc bulge is evident. No spinal canal stenosis or n eural foraminal stenosis is present L2-L3: L disc bulge is present with anterior thecal sac contact. No AP spinal canal stenosis is prese nt. Neural foramen are patent No spinal canal stenosis or neural foraminal stenosis is present L3-L4: Mild disc bulge present with anterior thecal sac contact. No AP spinal canal stenosis is prese nt. Neural foramen are patent. Mild facet hypertrophy is present L4-L5: Broad-based disc bulge has mild anterior thecal sac compression. No AP spinal canal stenosis i s present. Moderate to severe foraminal narrowing is present bilaterally. Mild facet hypertrophy is p resent L5-S1: There is loss of disc height with vacuum disc phenomenon. No significant disc bulge or disc he rniation evident. Severe bilateral foraminal stenosis is present. Correlate with radicular symptoms. Facet hypertrophy is present. Vertebral alignment appears normal. IMPRESSION: Degenerative disc change L5-S1. 2. Foraminal narrowing greatest L4-5 L5-S1. Correlate with the radicular symptoms.
== END | disposition home or self-care (01) ==
LOC: RADCTMAIN 09:01
PROVIDERS: ATTEND Family Medicine
DX: M51.37 Other intervertebral disc degeneration, lumbosacral region (principal); M99.73 Connective tissue and disc stenosis of intervertebral foramina of lumbar region
CPT/HCPCS: 72131

== ENCOUNTER → 2023-06-14 | Outpatient (CLI) | payer BC ==
--- NOTE | 2023-06-14 13:02 | CT ---
EXAMINATION TYPE: CT hip LT wo con DATE OF EXAM: 06/14/2023 COMPARISON: None HISTORY: left hip and ankle pain. CT DLP: 637 mGycm Automated exposure control for dose reduction was used. FINDINGS: There is no left hip fracture, dislocation or significant joint space narrowing. There is abnormal serpiginous density in the subchondral left femoral head strongly suggestive of pablo scular necrosis. There is no deformity or collapse of the left femoral head cortex. There is no joint effusion. The periarticular soft tissues are normal. The visualized hemipelvis is intact. IMPRESSION: 1. No evidence of joint effusion or significant degenerative arthritis of left hip 2. 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
--- NOTE | 2023-06-14 13:30 | CT ---
CT left ankle HISTORY: Pain. COMPARISON: None. TECHNIQUE: Multiple axial images are obtained to the left ankle. Coronal and sagittal reconstructions were generated and reviewed. FINDINGS: There is no fracture, dislocation, or focal intraosseous abnormality. There is mild spurring of the p osterior and plantar surfaces of the calcaneus. The ankle mortise is intact. No definite joint effusion. IMPRESSION: Mild spurring of the calcaneus with no other significant amount is seen.
== END | disposition home or self-care (01) ==
LOC: RADCTMAIN 11:49
PROVIDERS: ATTEND Family Medicine
DX: M77.32 Calcaneal spur, left foot (principal); M25.552 Pain in left hip

== ENCOUNTER → 2023-08-24 | Outpatient (CLI) | payer BC ==
--- NOTE | 2023-08-24 10:55 | US ---
EXAMINATION TYPE: US kidneys/renal and bladder DATE OF EXAM: 08/24/2023 COMPARISON: 03/18/2020 CLINICAL INDICATION: Male, 63 years old with history of M54.50 LOW BACK PAIN, UNSPECIFIED; Right side d back pain x 1.5 months; Hx left nephrectomy EXAM MEASUREMENTS: Right Kidney: 13.8 x 6.1 x 6.3 Left Kidney: Surgically absent cm Post Void Residual Volume: NamL Right Kidney: ? Stones seen Left Kidney: NA Bladder: WNL Bilateral Jets seen: Right jet seen Normal Post Void Residual: NA There is no evidence for hydronephrosis at this point in time. No nephrolithiasis is seen. No bandar s are identified. The urinary bladder is anechoic. Right jet is seen. IMPRESSION: 1. No obstructive uropathy. 2. Right nonobstructing renal calculi versus prominent renal sinus fat.
== END | disposition home or self-care (01) ==
LOC: RADUSWWP 10:06
PROVIDERS: ATTEND Family Medicine
DX: M54.50 Low back pain, unspecified (principal)
CPT/HCPCS: 76770

== ENCOUNTER → 2023-08-24 | Outpatient (CLI) | payer BC ==
--- NOTE | 2023-08-24 12:38 | US ---
EXAMINATION TYPE: US scrotum with doppler. Grayscale and color Doppler Duplex imaging performed of kiko kebede scrotum. 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 There is no evidence of testicular torsion. Presence of hydroceles: Left Presence of varicoceles: Left Echogenic area redemonstrated laterosuperior right testicle = 0.4 x 0.4 x 0.3 cm P = 0.4 x 0.3 x 0.3 cm Cyst medial to right epididymus = 0.8 x 1.4 x 0.9 cm ? Appendage superior to left testicle redemonstrated = 0.4 x 0.6 x 0.4 cm P = 0.4 x 0.6 x 0.3 cm Minimal hyperechoic foci just above microlithiasis right testicle IMPRESSION: 1. Hyperechoic focus within the right testis possibly representing lipoma. Stable in size. Consider follow-up in one year. 2. 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 Left varicocele 4. E0.
== END | disposition home or self-care (01) ==
LOC: RADUSWWP 10:03
PROVIDERS: ATTEND Urology
DX: D29.20 Benign neoplasm of unspecified testis (principal); I86.1 Scrotal varices; N43.3 Hydrocele, unspecified
CPT/HCPCS: 76870; 93975

== ENCOUNTER → 2023-09-10 | Outpatient (CLI) | payer BC ==
--- NOTE | 2023-10-15 07:45 | MR ---
MRI left ankle without contrast HISTORY: Ankle swelling and pain. COMPARISON: None. TECHNIQUE: Multiecho multiplanar images left ankle were obtained without contrast. FINDINGS: There is a nondisplaced intra-articular fracture of the anterior talus with marked bone marrow edema. The fracture line extends to the talar navicular joint. There is a nondisplaced fracture involving t he anterior superior cuboid with marked bone marrow edema. The Achilles tendon is intact. The flexor and extensor tendons and tendon sheaths are normal. There is no ligamentous injury. IMPRESSION: Nondisplaced fractures of the talus and cuboid bones as described above. No tendinous or ligamentous injury.
== END | disposition home or self-care (01) ==
LOC: RADMRIMAIN 07:44
PROVIDERS: ATTEND Internal Medicine Rheumatology
DX: M25.472 Effusion, left ankle (principal)

== ENCOUNTER → 2024-06-26 | Outpatient (CLI) | payer BC ==
[2024-06-26 19:35] LABS: Basophils # (A) 0.05 X 10*3/uL (0.00-0.10); Basophils % (A) 0.8 %; Eosinophils # (A) 0.19 X 10*3/uL (0.04-0.35); Eosinophils % (A) 3.1 %; HGB 14.4 g/dL (13.0-17.0); Lymphocytes # (A) 1.24 X 10*3/uL (0.90-5.00); MCH 31.4 pg (27.0-32.0); MCHC 32.7 g/dL (32.0-37.0); MCV 96.1 FL (80.0-97.0); Mean Platelet Volume 11.3 FL (9.5-12.2); Monocytes # (A) 0.71 X 10*3/uL (0.20-1.00); Monocytes % (A) 11.5 %; NRBC Per 100 WBC 0 X 10*3/uL (0.00-0.01); Neutrophils % (A) 64.4 %; Platelet Count 186 X 10*3/uL (140-440); RBC 4.58 X 10*6/uL (4.40-5.60); RDW 11.7 % (11.5-14.5)
[2024-06-26 20:47] LABS: ALT 22 U/L (10-49); AST 19 U/L (14-35); Albumin 4.1 g/dL (3.8-4.9); Albumin/Globulin Ratio 1.64 Ratio (1.60-3.17); Alkaline Phosphatase 67 U/L (41-126); BUN/Creat Ratio 14.92 Ratio (12.00-20.00); Blood Urea Nitrogen 19.4 mg/dL (9.0-27.0); Calcium 9.5 mg/dL (8.7-10.3); Carbon Dioxide 26.4 mmol/L (21.6-31.8); Chloride 107 mmol/L (96-109); Chol/HDL Ratio 2.75 Ratio; Creatine Kinase 78 U/L (35-257); Globulin 2.5 g/dL (1.6-3.3); Glucose 99 mg/dL (70-110); LDL Cholesterol,Calculated 59.5 mg/dL (0.0-131.0); Potassium 4.7 mmol/L (3.5-5.5); Prostate Specific Antigen 0.75 ng/mL (0.000-4.500); Sodium 142 mmol/L (135-145); Total Bilirubin 0.4 mg/dL (0.3-1.2); Total Protein 6.6 g/dL (6.2-8.2); Uric Acid 6.2 mg/dL (3.7-8.7); VLDL Calculation 16.82 mg/dL (5.00-40.00)
== END | disposition home or self-care (01) ==
LOC: LABWHC1 11:49
PROVIDERS: ATTEND Family Medicine
DX: Z12.5 Encounter for screening for malignant neoplasm of prostate (principal); M79.675 Pain in left toe(s); I48.91 Unspecified atrial fibrillation; R73.03 Prediabetes; E78.5 Hyperlipidemia, unspecified
CPT/HCPCS: 36415; 80053; 80061; 82550; 83036; 84153; 84443; 84550; 85025